=== PATIENT | female | born 1940 | race African-American/Black ===

== ENCOUNTER 2017-07-03 15:00 | Emergency (ER) | payer MEDICARE, MEDICAID ==
[2017-07-03] MEDS: DIPHTH,PERTUSS(ACELL),TET TOX 0.5 ML DISP.SYRIN. VAX IM (15:58)
== END 2017-07-03 16:10 | disposition home or self-care (01) ==
LOC: ER 15:00
DX: S61.012A Laceration without foreign body of left thumb without damage to nail, initial encounter (principal); W26.0XXA Contact with knife, initial encounter; Y93.89 Activity, other specified; Y92.89 Other specified places as the place of occurrence of the external cause; Y99.8 Other external cause status
CPT/HCPCS: 90471; 90715; 99283-25